=== PATIENT | male | born 1980 | race Caucasian/White ===

== ENCOUNTER 2017-03-08 15:22 | Emergency (ER) | payer MEDICAID, OTHER ==
[~2017-03-08] VITALS: Ht 180.3 cm; Wt 79.4 kg
[2017-03-08 15:22] VITALS: BP 130/74
[~2017-03-08 15:22] MED LIST: CEPH125S; CITA40TA22 PO; CLON2TAB PO; CYCL-289; OXYC-128 PO; SULF1TAB47
== END 2017-03-08 16:03 | disposition home or self-care (01) ==
LOC: ER 15:30
DX: T16.1XXA Foreign body in right ear, initial encounter (principal); H60.91 Unspecified otitis externa, right ear; G89.29 Other chronic pain; M54.2 Cervicalgia; F32.9 Major depressive disorder, single episode, unspecified; F17.200 Nicotine dependence, unspecified, uncomplicated; X58.XXXA Exposure to other specified factors, initial encounter; Y93.89 Activity, other specified; Y92.89 Other specified places as the place of occurrence of the external cause; Y99.8 Other external cause status; Z88.6 Allergy status to analgesic agent
CPT/HCPCS: 69200; 99284; A4606; Z7610

== ENCOUNTER 2021-02-08 19:31 | Emergency (ER) | payer MEDICAID, OTHER ==
[~2021-02-08] VITALS: Ht 180.3 cm; Wt 113.4 kg
--- NOTE | 2021-02-08 19:45 | NUR ---
NAJMA PT STATES "HEARING VOICES TO GO HOME, FEELING SUICIDAL" PLAN TO CUT WRIST. PT REQUEST TO GO TO [facility]. PT AOX4 RR EVEN AND UNLABORED. NO SOB NOTED. NO NVD AT THIS TIME. PT GOWNED, PERSONAL BELONGINGS PLACED IN LOCKER, SEUCIRTY AT BEDSIDE FOR WANDING. HOLGER OSCAR LINE OF SIGHT. Addendum: 02/09/21 at 1007 by Y[place] [id number]
--- NOTE | 2021-02-08 19:50 | NUR ---
URINE COLLECTED, SENT TO LAB
[2021-02-08 20:09] LABS: BILIRUBIN,URINE NEGATIVE (NEGATIVE); COLOR,URINE YELLOW (YELLOW); LEUKOCYTE ESTERASE ,URINE NEGATIVE (NEGATIVE); NITRITE, URINE NEGATIVE (NEGATIVE); PROTEIN,URINE NEGATIVE (NEGATIVE); UGLUCOSE NEGATIVE (NEGATIVE); UROBILINOGEN,URINE 0.2 EU/dL (0.2)
[2021-02-08 20:16] LABS: BASOPHILS # (AUTO) 0.1 /CMM (0.0-0.2); BASOPHILS % (AUTO) 0.6 % (0.0-2.0); EOSINOPHILS % (AUTO) 2.9 % (0.0-6.0); HEMATOCRIT 39 % (39-51); HEMOGLOBIN 13.2 g/dL (13.5-17.5); LYMPHOCYTES # (AUTO) 1.4 /CMM (0.8-4.8); LYMPHOCYTES % (AUTO) 11.8 % (20.0-44.0); MEAN CORPUSCULAR HGB CONC 34 g/dl (31.0-36.0); MEAN CORPUSCULAR VOLUME 98 fL (80-96); MONOCYTES # (AUTO) 0.9 /CMM (0.1-1.30); MONOCYTES % (AUTO) 7.3 % (2.0-12.0); NEUTROPHILS # (AUTO) 9.1 /CMM (1.8-8.9); NEUTROPHILS % (AUTO) 77.4 % (43.0-81.0); PLATELET COUNT (AUTO) 179 /CMM (150-450); RED BLOOD CELL COUNT(AUTO) 3.96 MIL/uL (4.5-6.0); WHITE BLOOD COUNT (AUTO) 11.7 K/uL (4.3-11.0)
[2021-02-08] MEDS ORDERED: IBUPROFEN 600 MG TABLET ONE (20:22)
[2021-02-08] MEDS ORDERED: LORAZEPAM INJ 2 MG/ML VIAL ONE ×2 (20:22→21:52)
[2021-02-08 20:24] LABS: ALANINE AMINOTRANSFERASE 47 U/L (12-78); ALBUMIN 3.6 g/dL (3.4-5.0); ALCOHOL, BLOOD < 3 mg/dL (0-0); ALKALINE PHOSPHATASE 94 U/L (46-116); ASPARTATE AMINOTRANSFERASE 60 U/L (15-37); BILIRUBIN,DIRECT 0.1 mg/dL (0.0-0.2); BILIRUBIN,TOTAL 0.3 mg/dL (0.2-1.0); CALCIUM, SERUM 8.9 mg/dL (8.5-10.1); CARBON DIOXIDE 23 mmol/L (21-32); CHLORIDE 105 mmol/L (98-107); CREATININE 0.9 mg/dL (0.6-1.3); GLUCOSE 110 mg/dL (74-106); POTASSIUM 3.6 mmol/L (3.5-5.1); SODIUM SERUM 138 mmol/L (136-145); TOTAL PROTEIN, SERUM 7.5 g/dL (6.4-8.2); UREA NITROGEN, BLOOD 15 mg/dL (7-18)
[2021-02-08 20:29] LABS: ACETAMINOPHEN < 0 ug/ml (10-30)
[2021-02-08] MEDS ORDERED: LORAZEPAM INJ 2 MG/ML VIAL IM ONE ×2 (20:30→22:00)
[2021-02-08] MEDS ORDERED: IBUPROFEN 600 MG TABLET PO ONE (20:30)
--- NOTE | 2021-02-08 20:30 | NUR ---
CALL FROM LAB. RAPID COVID NEGATIVE.
--- NOTE | 2021-02-08 20:47 | NUR ---
FACESHEET AND CLINICALS FAXED TO [facility].
[2021-02-08] MEDS ORDERED: OLANZAPINE 10 MG VIAL IM ONE ×2 (21:50→22:00)
--- NOTE | 2021-02-09 05:23 | NUR ---
TRANSFER INFORMATION: PT ACCEPTED TO [facility] ACCEPTING MD: DR. ADAM NUMBER FOR REPORT: [phone] EXT [phone]
--- NOTE | 2021-02-09 05:33 | NUR ---
CALLED [facility] FOR TRANSPORTATION. RESERVATION #[id number], WILL CALL BACK WITH PIO
--- NOTE | 2021-02-09 05:37 | NUR ---
REPORT GIVEN TO JESSICA MYERS FROM [facility] FOR [facility]
--- NOTE | 2021-02-09 06:35 | NUR ---
SPOKE TO CHARLES FROM [facility]: AMBULANCE ETA 8AM.
[2021-02-09] MEDS ORDERED: LORAZEPAM 1 MG TABLET ONE ×2 (07:30→09:32)
[2021-02-09] MEDS ORDERED: IV NS 0.9% 1,000 ML BAG IV ONE ×2 (07:30)
[2021-02-09] MEDS ORDERED: LORAZEPAM 1 MG TABLET PO ONE ×2 (07:30→09:00)
--- NOTE | 2021-02-09 07:45 | NUR ---
EKG COMPLETED [id number]
[2021-02-09 08:29] LABS: CARBON DIOXIDE 23 mmol/L (21-32); CHLORIDE 107 mmol/L (98-107); CREATININE 0.9 mg/dL (0.6-1.3); GLUCOSE 101 mg/dL (74-106); POTASSIUM 3.3 mmol/L (3.5-5.1); SODIUM SERUM 141 mmol/L (136-145); UREA NITROGEN, BLOOD 11 mg/dL (7-18)
[2021-02-09 08:59] LABS: CREATINE KINASE, TOTAL 574 U/L (39-308)
--- NOTE | 2021-02-09 09:37 | NUR ---
THE PATIENT REFUSED 2ND IV NS [address] ALFARO AWARE WITH NO NEW ORDER.
[2021-02-09 09:39] VITALS: BP 137/75
--- NOTE | 2021-02-09 09:54 | NUR ---
The patient is alert and oreinted x4. Denies pain. In room air and denies SOB. Respiration regular and unlabored. Denies SI/HI. Vital signs WNL. Patient discharged to home in stable condition. Written and verbal after care instructions given. Patient verbalizes understanding of instruction. The patient left ER in stable condition.
[2021-02-09] MEDS ORDERED: POTASSIUM CHLORIDE 20 MEQ TAB.PRT.SR PO ONE ×2 (10:00→10:03)
== END 2021-02-09 10:10 | disposition home or self-care (01) ==
LOC: ER 19:40
DX: F15.10 Other stimulant abuse, uncomplicated (principal); I44.0 Atrioventricular block, first degree; R94.31 Abnormal electrocardiogram [ECG] [EKG]; M62.82 Rhabdomyolysis; Z82.49 Family history of ischemic heart disease and other diseases of the circulatory system; E87.6 Hypokalemia; F32.9 Major depressive disorder, single episode, unspecified; Z79.899 Other long term (current) drug therapy; G89.29 Other chronic pain; M54.2 Cervicalgia; Z20.822 Contact with and (suspected) exposure to COVID-19
CPT/HCPCS: 36415 ×2; 80048 ×2; 80076; 80299; 80307; 80320; 81003; 82550 ×2; 82553; 83735; 84484; 85025; 87426; 93005; 96360; 96372 ×2; 99285; C9803; J2060 ×2; J3490; J7030 ×2; G0480

== ENCOUNTER 2024-05-30 08:55 | Emergency (ER) | payer OTHER | END 2024-05-30 09:31 | disposition left against medical advice (07) | LOC: ER 09:28 | DX: Z00.8 Encounter for other general examination (principal); Z53.21 Procedure and treatment not carried out due to patient leaving prior to being seen by health care provider ==